=== PATIENT | female | born 1975 ===

== ENCOUNTER 2019-02-07 20:52 | Emergency (ER) | payer OTHER ==
[~2019-02-07 20:52] MED LIST: Iopamidol 300 61% 100 ML VIAL FS ONE
[2019-02-07] MEDS ORDERED: Ondansetron PF 4 MG/2 ML Vial ONE (22:48)
[2019-02-07] MEDS ORDERED: Morphine 4 MG/ML VIAL ONE (22:48)
[2019-02-07 23:19] LABS: BHCG - Serum Negative (NEGATIVE); Pregs Control Background? CLEAR/WHITE (CLR/WHITE); Pregs Control Bar Appear? YES (CONTROL BAR)
[2019-02-07 23:21] LABS: Hemoglobin 12.4 g/dL (12.0-16.0); Mean Corpuscular HGB CONC 32.4 g/dL (32.0-36.0); Mean Corpuscular Hemoglobin 29.1 pg (27.0-31.0); Mean Platelet Volume 7.1 fL (7.4-10.4); Platelet Count 216 thou/uL (130-400); RBC Distribution Width 13.2 % (11.5-14.5); Red Blood Cell (RBC) Count 4.25 mill/uL (4.20-5.40); White Blood Cell (WBC) Count 15.9 thou/uL (4.8-10.8)
[2019-02-07 23:24] LABS: Eosinophils 3 % (0-10); Lymphocytes 9 % (21-51); MDiff Complete? YES; Monocytes 2 % (0-10); Neutrophil 86 % (42-75); Platelet Morphology Comment Appears Adequate; RBC Morphology Normal
[2019-02-07 23:29] LABS: ALT (SGPT) 15 U/L (8-55); AST (SGOT) 17 U/L (5-34); Albumin 3.9 g/dL (3.5-5.0); Alkaline Phosphatase 86 U/L (40-150); Anion Gap 15 mmol/L (10-20); BUN (Urea Nitrogen) 11 mg/dL (7.0-18.7); Bilirubin, Total 0.2 mg/dL (0.2-1.2); Calc. Creatinine Clearance 0 mL/min (70-130); Calcium 9.2 mg/dL (7.8-10.44); Carbon Dioxide 22 mmol/L (22-29); Chloride 107 mmol/L (98-107); Estimated GFR-MDRD 90; Glucose 88 mg/dL (70-105); Lipase 17 U/L (8-78); Potassium 3.7 mmol/L (3.5-5.1); Protein, Total 6.9 g/dL (6.0-8.3); Sodium 140 mmol/L (136-145)
[2019-02-08] MEDS ORDERED: Piperacillin/Tazobactam 4.5 GM VIAL ONE (01:09)
[2019-02-08] MEDS ORDERED: Ondansetron PF 4 MG/2 ML Vial ONE (01:16)
[2019-02-08] MEDS ORDERED: Morphine 4 MG/ML VIAL ONE ×3 (01:16→03:54)
[2019-02-08] MEDS ORDERED: Promethazine HCl 25 MG/ML VIAL ONE (03:56)
--- NOTE | 2019-02-08 08:11 | CT ---
PRELIMINARY REPORT/[facility]/EMERGENCY AFTER HOURS PROCEDURE EXAM: CT Abdomen and Pelvis With Contrast EXAM DATE/TIME: 02/08/2019 1:29 AM CLINICAL HISTORY: 43 years old, female; Pain and condition or disease; Other: Anal fistula; Abdominal pain; Prior surge ry; Surgery date: 6+ months; Surgery type: Indwelling seton placement/rectal drain 14 years ago; Patient HX: Rectal pain for two days, hs of fistula for 14 years with perirectal abscesses. Hs o f crohns, colitis, tubal 2010, 3 cxns TECHNIQUE: Imaging protocol: Computed tomography of the abdomen and pelvis with intravenous contrast. Radiation optimization: All CT scans at this facility use at least one of these dose optimization jh hniques: automated exposure control; mA and/or kV adjustment per patient size (includes targeted exams where dose is matched to clinical indication); or iterative reconstruction. Contrast material: [id number]; Contrast volume: 90 ml; Contrast route: IV, ORAL; COMPARISON: No relevant prior studies available. FINDINGS: Liver: Normal. No mass. Gallbladder and bile ducts: Normal. No calcified stones. No ductal dilation. Pancreas: Normal. No ductal dilation. Spleen: Normal. No splenomegaly. Adrenals: Normal. No mass. Kidneys and ureters: No discernible fistula tract. Stomach and bowel: No bowel wall thickening or intestinal obstruction. Appendix: Normal appendix. Intraperitoneal space: Unremarkable. No free air. No significant fluid collection. Vasculature: Unremarkable. No abdominal aortic aneurysm. Lymph nodes: Unremarkable. No enlarged lymph nodes. Bladder: Unremarkable as visualized. Reproductive: 2.5 cm left ovarian cyst. Bones/joints: Unremarkable. No acute fracture. Soft tissues: 1.6 cm left perianal abscess. Small catheter at the periphery of the collection but not within it. Small umbilical hernia containing fat only. IMPRESSION: 1. 2.5 cm left ovarian cyst. 2. 1.6 cm left perianal abscess. Small catheter at the periphery of the collection but not within it. Thank you for allowing us to participate in the care of your patient. Dictated and Authenticated by: Adams Rodarte MD 02/08/2019 2:37 AM Central Time ([place] & [place]) FINAL REPORT CT ABDOMEN AND PELVIS WITH IV CONTRAST: TECHNIQUE: Oral contrast administered. Multiplanar reconstruction. FINDINGS: There is a small left ovarian cyst, as noted on the preliminary report. A 1.6 cm left perianal absce ss collection is noted. A catheter is coiled adjacent to this collection. These findings were descr ibed on the preliminary report. I am in agreement with the preliminary report. CODE QA POS: OFF
== END 2019-02-08 04:08 | disposition short-term general hospital (02) ==
LOC: SCSER 20:52
DX: K61.0 Anal abscess (principal)
CPT/HCPCS: 74177; 80053; 83690; 84703; 85025; 96361; 96365; 96375; 96376; J2270; J2405; J2543; J2550; Q9967